=== PATIENT | female | born 1995 | race African-American/Black ===

== ENCOUNTER 2017-05-19 09:54 | Emergency (ER) | payer OTHER ==
[2017-05-19 10:00] VITALS: BMI 17.1
[2017-05-19] MEDS ORDERED: ALBUTEROL SO4 2.5/IPRATROPIUM 0.5 INH SOL 3 ML VIAL.NEB. NEB ONE ×2 (10:03→10:23)
[2017-05-19] MEDS ORDERED: predniSONE 20 MG TABLET (UD) PO ONE (10:31)
[2017-05-19] MEDS ORDERED: predniSONE 20 MG TABLET (UD) ONE (10:31)
[2017-05-19] MEDS ORDERED: ALBUTEROL SO4 0.083% IH SOL 2.5 MG/3 ML VIAL.NEB. NEB ONE ×2 (10:31)
--- NOTE | 2017-05-19 10:36 | PDOC ---
History of Present Illness - General History Source: Patient Exam Limitations: No Limitations - History of Present Illness Initial Comments: 05/19/17 11:06 The patient is a 21 year old female, with a significant past medical history of seasonal allergies and asthma who presents to the emergency department with sudden onset difficulty breathing today AM. As per mother, patient tried using albuterol pump and nebulizer every two hours with no relief. Patient has been increasingly SOB and has been wheezing more often this morning. Patient reports recent illness with URI symptoms. Patient states her Asthma triggers are weather changes and tobacco smoke. She denies chest pain, headache or dizziness. She denies fever, chills, abdominal pain, nausea, vomit, diarrhea or constipation. She denies dysuria, frequency, urgency or hematuria. <Rosenda Anaya - Last Filed: 05/19/17 11:06> - General History Source: Patient Exam Limitations: No Limitations <Edson Stevenson - Last Filed: 05/19/17 11:44> - General Chief Complaint: Asthma Stated Complaint: SOB (ASTHMA) Time Seen by Provider: 05/19/17 10:23 Past History <Rosenda Anaya - Last Filed: 05/19/17 11:06> - Past Medical History Asthma: Yes - Immunization History Immunization Up to Date: Yes - Suicide/Smoking/Psychosocial Hx Smoking Status: No Smoking History: Never smoked Have you smoked in the past 12 months: No Number of Cigarettes Smoked Daily: 0 Information on smoking cessation initiated: No Hx Alcohol Use: No Drug/Substance Use Hx: No Substance Use Type: None <Edson Stevenson - Last Filed: 05/19/17 11:44> - Past Medical History Allergies/Adverse Reactions: Allergies Allergy/AdvReac Type Severity Reaction Status Date / Time peanut Allergy Itching Verified 05/19/17 09:57 Home Medications: Ambulatory Orders Albuterol 0.083% Nebulizer Freya [Ventolin 0.083% Nebulizer Soln -] 1 neb NEB Q4H PRN #20 vial 05/19/17 Albuterol 0.083% Nebulizer Freya [Ventolin 0.083%] 1 neb NEB QID PRN 05/19/17 Budesonide/Formeterol Fumarate [SYMBICORT 160/4.5mcg -] 1 inh PO DAILY 05/19/17 Prednisone [Deltasone -] 40 mg PO DAILY #8 tablet 05/19/17 Review of Systems - Review of Systems Able to Perform ROS?: Yes Comments:: 05/19/17 11:06 GENERAL/CONSTITUTIONAL: No fever or chills. No weakness. HEAD, EYES, EARS, NOSE AND THROAT: No change in vision. No ear pain or discharge. No sore throat. CARDIOVASCULAR: No chest pain or shortness of breath. RESPIRATORY: +cough, wheezing,. No hemoptysis. GASTROINTESTINAL: No nausea, vomiting, diarrhea or constipation. GENITOURINARY: No dysuria, frequency, or change in urination. MUSCULOSKELETAL: No joint or muscle swelling or pain. No neck or back pain. SKIN: No rash NEUROLOGIC: No headache, vertigo, loss of consciousness, or change in strength/ sensation. ENDOCRINE: No increased thirst. No abnormal weight change. HEMATOLOGIC/LYMPHATIC: No anemia, easy bleeding, or history of blood clots. ALLERGIC/IMMUNOLOGIC: No hives or skin allergy. <Rosenda Anaya - Last Filed: 05/19/17 11:06> *Physical Exam - Vital Signs Last Vital Signs Temp Pulse Resp BP Pulse Ox 98.6 F 120 H 20 120/73 100 05/19/17 09:58 05/19/17 10:56 05/19/17 10:56 05/19/17 10:56 05/19/17 10:56 - Physical Exam Comments: 05/19/17 11:06 GENERAL: Awake, alert, and fully oriented, in no acute distress. +Speaking in full sentences but anxious. HEAD: No signs of trauma EYES: PERRLA, EOMI, sclera anicteric, conjunctiva clear ENT: Auricles normal inspection, hearing grossly normal, nares patent, oropharynx clear without exudates. Moist mucosa NECK: Normal ROM, supple, no lymphadenopathy, JVD, or masses LUNGS: +Moving good air. +Wheezing bilaterally. Breath sounds equal, No crackles HEART: Regular rate and rhythm, normal S1 and S2, no murmurs, rubs or gallops ABDOMEN: Soft, nontender, normoactive bowel sounds. No guarding, no rebound. No masses EXTREMITIES: Normal range of motion, no edema. No clubbing or cyanosis. No cords, erythema, or tenderness NEUROLOGICAL: Cranial nerves II through XII grossly intact. Normal speech, normal gait SKIN: Warm, Dry, normal turgor, no rashes or lesions noted. <Rosenda Anaya - Last Filed: 05/19/17 11:06> - Vital Signs Last Vital Signs Temp Pulse Resp BP Pulse Ox 98.6 F 129 H 25 H 121/80 100 05/19/17 09:58 05/19/17 09:58 05/19/17 09:58 05/19/17 09:58 05/19/17 09:58 <Edson Stevenson - Last Filed: 05/19/17 11:44> ED Treatment Course - Medications Given in the ED: ED Medications Discontinued Medications Generic Name Dose Route Start Last Admin Trade Name Freq PRN Reason Stop Dose Admin Albuterol Sulfate 3 amp 05/19/17 10:31 05/19/17 10:33 Ventolin 0.083% Nebulizer Soln - NEB 05/19/17 10:32 3 amp ONCE ONE Administration Albuterol/Ipratropium 1 amp 05/19/17 10:03 05/19/17 10:03 Duoneb - NEB 05/19/17 10:04 1 amp NOW ONE Administration Prednisone 40 mg 05/19/17 10:31 05/19/17 10:44 Deltasone - PO 05/19/17 10:32 40 mg ONCE ONE Administration <Rosenda Anaya - Last Filed: 05/19/17 11:06> - Medications Given in the ED: ED Medications Discontinued Medications Generic Name Dose Route Start Last Admin Trade Name Freq PRN Reason Stop Dose Admin Albuterol/Ipratropium 1 amp 05/19/17 10:03 05/19/17 10:03 Duoneb - NEB 05/19/17 10:04 1 amp NOW ONE Administration <Edson Stevenson - Last Filed: 05/19/17 11:44> Medical Decision Making - Medical Decision Making 05/19/17 10:33 A portion of this note was documented by scribe services under my direction. I have reviewed the details of the note, within reason, and agree with the documentation with the following case summary and management plan written by me. Patient treated in the ED. Nursing notes are reviewed and incorporated into the medical decision-making. Vital signs reviewed. Peripheral IV access obtained by the nurse, laboratory studies are drawn and sent, reviewed and interpreted by myself. Vital Signs Temp Pulse Resp BP Pulse Ox 98.6 F 129 H 25 H 121/80 100 05/19/17 09:58 05/19/17 09:58 05/19/17 09:58 05/19/17 09:58 05/19/17 09:58 21-year-old female with past medical history of asthma, with prior hospitalizations presents with asthma exacerbation. Patient reports that the changes in the weather creates her to wheeze the last several days. The mother has been giving her to 2 hour albuterol nebulizers area denies fevers or chills or cough. Patient came to the ED. The patient is anxious but breathing comfortably and speaking. We'll give more nebulizers and prednisone. Patient's tachycardic likely secondary to albuterol use. We will observe after treatments and reassess. 05/19/17 11:42 Pt reassessed. The symptoms improved and breathing with clear lungs. Return precautions given. Discharge diagnosis: asthma exacerbation I discussed the physical exam findings, ancillary test results and final diagnoses with the patient. I answered all of the patient's questions. The patient was satisfied with the care received and felt comfortable with the discharge plan and treatment plan. The patient will call their primary care physician within 24 hours to arrange follow-up and will return to the Emergency Department with any new, persistant or worsening symptoms. <Edson Stevenson - Last Filed: 05/19/17 11:44> *DC/Admit/Observation/Transfer - Attestations Scribe Attestion: 05/19/17 11:06 Documentation prepared by Rosenda Anaya, acting as medical practitioners for Edson Stevenson MD <Rosenda Anaya - Last Filed: 05/19/17 11:06> - Discharge Dispostion Admit: No <Edson Stevenson - Last Filed: 05/19/17 11:44> Diagnosis at time of Disposition: Exacerbation of asthma - Discharge Dispostion Disposition: HOME Condition at time of disposition: Improved - Prescriptions Prescriptions: Prednisone [Deltasone -] 40 mg PO DAILY #8 tablet Albuterol 0.083% Nebulizer Freya [Ventolin 0.083% Nebulizer Soln -] 1 neb NEB Q4H PRN #20 vial PRN Reason: Wheezing - Patient Instructions Printed Discharge Instructions: Asthma -- Adult Additional Instructions: Please take albuterol every 4 hours as needed for wheezing. Please take the prednisone daily for the next 4 days. Start tomorrow. Follow up with your doctor.
[2017-05-19 12:18] VITALS: BP 126/78; PULSE 102; TEMP 98.3
== END 2017-05-19 11:55 | disposition home or self-care (01) ==
LOC: JER 09:54
PROC: 3E0F7GC Introduction of Other Therapeutic Substance into Respiratory Tract, Via Natural or Artificial Opening (ICD-10-PCS; principal; 2017-05-19)
PROC: 3E0F7GC Introduction of Other Therapeutic Substance into Respiratory Tract, Via Natural or Artificial Opening (ICD-10-PCS; 2017-05-19)
DX: J45.901 Unspecified asthma with (acute) exacerbation (principal)
CPT/HCPCS: 99282-25

== ENCOUNTER 2017-11-25 16:12 | Emergency (ER) | payer OTHER ==
[2017-11-25 16:25] VITALS: BP 108/74; PULSE 78; TEMP 98.8; BMI 17.1
--- NOTE | 2017-11-25 16:27 | PDOC ---
Rapid Medical Evaluation Time Seen by Provider: 11/25/17 16:21 Medical Evaluation: Allergies Allergy/AdvReac Type Severity Reaction Status Date / Time peanut Allergy Itching Verified 11/25/17 16:21 11/25/17 16:22 Pt c/o: left knee and back pain after cleaning last ,went to [facility] -, no relief with motrin Pt on brief exam: ambulatory, candy wrap to knee Pt ordered for: hcg urine Pt to proceed to the ED 11/25/17 16:27 Discharge Disposition - Diagnosis Knee pain - Referrals - Patient Instructions - Post Discharge Activity
--- NOTE | 2017-11-25 16:46 | PDOC ---
History of Present Illness - General Chief Complaint: Pain Stated Complaint: KNEE INJURY Time Seen by Provider: 11/25/17 16:21 History Source: Patient Exam Limitations: No Limitations - History of Present Illness Initial Comments: 11/25/17 16:46 CHIEF COMPLAINT: Left knee pain with instability HISTORY OF PRESENT ILLNESS: Patient is a 22-year-old female, denies any significant medical history currently on no medication presents for evaluation of left knee pain. Patient reports on bent down hyperextended knee felt a pop in the knee then with pain to generalized knee and posterior knee. Has been wearing Chong wrap able to ambulate with steady gait. No deformity. REVIEW OF SYSTEMS: GENERAL: Afebrile, A&O x3 RESPIRATORY: No cough, wheezing, or hemoptysis. CARDIAC: No CP or SOB MUSCULOSKELETAL: Pain to left anterior and posterior knee SKIN : No erythema, no edema, no bruising, no deformity. NEUROLOGICAL: Denies any numbness or tingling. PHYSICAL EXAM: GENERAL: The patient is awake, alert, and fully oriented, in no acute distress. HEAD: Normal with no signs of trauma. RESPIRATORY: Lungs clear bilaterally no rhonchi, rales, or wheezes CARDIAC: S1-S2 audible, no murmur rub or gallop EXTREMITIES: Decreased range of motion to left knee related to pain, [no] fluid appreciated, no bulge sign. No pain to superior or inferior patella. Negative drop test. Negative posterior leg test. No joint laxity noted, no ecchymosis, no deformity, no abrasions ,no edema. +3 popliteal pulse. Negative Homans sign. No calf pain or tenderness, no erythema or edema. MUSCULOSKELETAL: No spinal point tenderness. SKIN: Warm, Dry, normal turgor, no erythema, [no] edema no bruising. 11/25/17 16:55 Past History - Past Medical History Allergies/Adverse Reactions: Allergies Allergy/AdvReac Type Severity Reaction Status Date / Time peanut Allergy Itching Verified 11/25/17 16:21 Home Medications: Ambulatory Orders Ibuprofen [Motrin -] 400 mg PO QID #28 tablet 11/25/17 Asthma: Yes COPD: No - Immunization History Immunization Up to Date: Yes - Suicide/Smoking/Psychosocial Hx Smoking Status: No Smoking History: Never smoked Have you smoked in the past 12 months: No Number of Cigarettes Smoked Daily: 0 Hx Alcohol Use: No Drug/Substance Use Hx: No Substance Use Type: None *Physical Exam - Vital Signs Last Vital Signs Temp Pulse Resp BP Pulse Ox 98.8 F 78 19 108/74 100 11/25/17 16:22 11/25/17 16:22 11/25/17 16:22 11/25/17 16:22 11/25/17 16:22 Medical Decision Making - Medical Decision Making 11/25/17 16:56 A/P: Patient with left knee pain, after hyperextension.) sent, patient sent for x-ray. 11/25/17 19:50 X-ray with no acute fracture dislocation, knee immobilizer placed on Motrin for pain and follow-up with orthopedics. *DC/Admit/Observation/Transfer Diagnosis at time of Disposition: Knee injury Qualifiers: Encounter type: initial encounter Laterality: left Qualified Code(s): S89.92XA - Unspecified injury of left lower leg, initial encounter - Discharge Dispostion Disposition: HOME Condition at time of disposition: Stable Admit: No - Prescriptions Prescriptions: Ibuprofen [Motrin -] 400 mg PO QID #28 tablet - Referrals Referrals: Abran Mccoy MD [Primary Care Provider] - - Patient Instructions Printed Discharge Instructions: DI for Knee Pain Additional Instructions: 1. Please return to the emergency department with any redness, swelling, increased pain, or any other concerns. 2. Keep splint on. 3. Please follow up in the office of Dr. Cooper within a week if pain persists. 4. No weightbearing 5. Ice and elevate when at rest. 6. Motrin for pain - Post Discharge Activity Forms/Work/School Notes: Back to Work
== END 2017-11-25 19:41 | disposition home or self-care (01) ==
LOC: JERFT 16:12
DX: S89.82XA Other specified injuries of left lower leg, initial encounter (principal); X50.1XXA Overexertion from prolonged static or awkward postures, initial encounter; Y93.E9 Activity, other interior property and clothing maintenance; Y92.89 Other specified places as the place of occurrence of the external cause; Y99.8 Other external cause status
CPT/HCPCS: 73562-TC-LT-FY; 84703; 99281-25

== ENCOUNTER 2018-05-21 05:26 | Inpatient (IN) | payer OTHER ==
[2018-05-21 06:13] LABS: BASO % 0.6 % (0-2.0); EOS % 1.5 % (0-4.5); HEMATOCRIT 35.6 % (32.4-45.2); HEMOGLOBIN 12.4 GM/dL (10.7-15.3); LYMPH % 18.9 % (8-40); MCH 30.2 pg (25.7-33.7); MCHC 34.8 g/dl (32.0-36.0); MEAN CELL VOLUME 86.8 fl (80-96); MEAN PLT VOLUME 8.5 fl (7.5-11.1); MONO % 11.2 % (3.8-10.2); NEUT % 67.8 % (42.8-82.8); PLATELET COUNT 254 K/MM3 (134-434); WHITE BLOOD COUNT 11.5 K/mm3 (4.0-10.0)
[2018-05-21 06:33] LABS: ALBUMIN 3.7 g/dl (3.4-5.0); ALK PHOS 92 U/L (45-117); ANION GAP 7 MMOL/L (8-16); BILIRUBIN,TOTAL 0.5 mg/dL (0.2-1); BLOOD UREA NITROGEN 12 mg/dL (7-18); CALCIUM 9.2 mg/dL (8.5-10.1); CHLORIDE 104 mmol/L (98-107); CO2 26 mmol/L (21-32); CREATININE 0.9 mg/dL (0.55-1.3); GLUCOSE,RANDOM 96 mg/dL (74-106); POTASSIUM 3.5 mmol/L (3.5-5.1); SGOT/AST 15 U/L (15-37); SGPT/ALT 14 U/L (13-61); SODIUM 137 mmol/L (136-145); TOT PROT 8.5 g/dl (6.4-8.2)
[2018-05-21] MEDS ORDERED: ACETAMINOPHEN 1000 MG/100 ML VIAL (NON FORMULARY) IVPB ONE (06:53)
[2018-05-21] MEDS ORDERED: ACETAMINOPHEN INJECTION 100 ML IVPB ONE (06:54)
[2018-05-21] MEDS ORDERED: ONDANSETRON 4 MG/2 ML VIAL IVPB ONE (06:54)
[2018-05-21] MEDS ORDERED: SODIUM CHLORIDE 0.9% 500 ML INFUS.BAG IV ONE (06:55)
[2018-05-21] MEDS ORDERED: ONDANSETRON 4 MG/2 ML VIAL ONE (06:55)
--- NOTE | 2018-05-21 07:32 | PDOC ---
History of Present Illness - General Chief Complaint: Pain, Acute Stated Complaint: ABD PAIN Time Seen by Provider: 05/21/18 07:12 History Source: Patient Exam Limitations: No Limitations - History of Present Illness Initial Comments: 05/21/18 07:24 CHIEF COMPLAINT: Abdominal pain HISTORY OF PRESENT ILLNESS: This is a 22-year-old female with a history of mild intermittent asthma who presents with her mother for evaluation of abdominal pain. She first developed abdominal pain, most notable in the right flank area about 2 weeks ago. She reports that the pain became worse 4-5 days ago when her menstrual period started and extends across the abdomen to the left side. She then developed fever yesterday. Last night, she developed right shoulder pain, stating that she felt she was unable to move her arm at night. She denies dysuria/hematuria. She denies vaginal discharge. She has had several episodes of diarrhea daily. She has nausea but has not vomited. She is sexually active with 1 male partner and reports using condoms insistently. Vital signs on arrival are notable for oral temperature of 101.4 and pulse of 103. PCP is Dr. Mccoy (media reporter). REVIEW OF SYSTEMS: GENERAL/CONSTITUTIONAL: Fever x 2 days. No weakness. No weight change. HEAD, EYES, EARS, NOSE AND THROAT: No change in vision. No ear pain or discharge. No sore throat. CARDIOVASCULAR: No chest pain or palpitations. RESPIRATORY: No cough, wheezing, or shortness of breath. GASTROINTESTINAL: Nausea. Diarrhea. No vomiting, diarrhea or constipation. GENITOURINARY: Right flank pain. No dysuria, frequency, or change in urination. MUSCULOSKELETAL: No joint or muscle swelling or pain. No neck or back pain. SKIN: No rash or easy bruising. NEUROLOGIC: No headache, vertigo, loss of consciousness, or loss of sensation. PSYCHIATRIC: No depression or anxiety. ENDOCRINE: No increased thirst. No abnormal weight change. HEMATOLOGIC/LYMPHATIC: No anemia, easy bleeding, or history of blood clots. ALLERGIC/IMMUNOLOGIC: No hives or skin allergy. No latex allergy. PHYSICAL EXAM: GENERAL: The patient is awake, alert, and fully oriented, in no acute distress. HEAD: Normal with no signs of trauma. ENT: Pupils equal, round and reactive to light, extraocular movements intact, sclera anicteric, conjunctiva clear. Neck supple. LUNGS: Clear to auscultation bilaterally. Normal excursion. No respiratory distress or use of accessory muscles. CV: RRR, S1/S2, no MRG. Cap refill < 2 sec. ABDOMEN: Soft, non-distended. Right CVA tenderness. Diffuse abdominal tenderness to deep palpation. EXTREMITIES: Normal range of motion, no edema. Full ROM of right shoulder. NEUROLOGICAL: Normal speech, normal gait. CN II-XII grossly intact. PSYCH: Normal mood, normal affect. SKIN: Warm, dry, normal turgor, no rashes or lesions noted. Past History - Past Medical History Allergies/Adverse Reactions: Allergies Allergy/AdvReac Type Severity Reaction Status Date / Time peanut Allergy Itching Verified 05/21/18 05:43 Home Medications: Ambulatory Orders Ibuprofen [Motrin -] 400 mg PO QID #28 tablet 11/25/17 Asthma: Yes COPD: No - Immunization History Immunization Up to Date: Yes - Suicide/Smoking/Psychosocial Hx Smoking Status: No Smoking History: Never smoked Have you smoked in the past 12 months: No Number of Cigarettes Smoked Daily: 0 Information on smoking cessation initiated: No Hx Alcohol Use: No Drug/Substance Use Hx: No Substance Use Type: None *Physical Exam - Vital Signs Last Vital Signs Temp Pulse Resp BP Pulse Ox 101.4 F H 103 H 20 119/75 99 05/21/18 05:43 05/21/18 05:43 05/21/18 05:43 05/21/18 05:43 05/21/18 05:43 ED Treatment Course - LABORATORY CBC & Chemistry Diagram: 05/21/18 06:00 05/21/18 06:00 - ADDITIONAL ORDERS Additional order review: Laboratory Results 05/21/18 06:00 Sodium 137 Potassium 3.5 Chloride 104 Carbon Dioxide 26 Anion Gap 7 L BUN 12 Creatinine 0.9 Creat Clearance w eGFR > 60 Random Glucose 96 Calcium 9.2 Total Bilirubin 0.5 AST 15 ALT 14 Alkaline Phosphatase 92 Total Protein 8.5 H Albumin 3.7 05/21/18 06:00 RBC 4.10 MCV 86.8 MCHC 34.8 RDW 14.0 MPV 8.5 Neutrophils % 67.8 Lymphocytes % 18.9 Monocytes % 11.2 H Eosinophils % 1.5 Basophils % 0.6 - Medications Given in the ED: ED Medications Discontinued Medications Generic Name Dose Route Start Last Admin Trade Name Freq PRN Reason Stop Dose Admin Acetaminophen 1,000 mg 05/21/18 06:53 05/21/18 06:59 Ofirmev Injection - IVPB 05/21/18 06:54 1,000 mg ONCE ONE Administration Ondansetron HCl 4 mg 05/21/18 06:54 05/21/18 06:59 Zofran Injection IVPB 05/21/18 06:55 4 mg ONCE ONE Administration Sodium Chloride 1,000 ml 05/21/18 06:55 05/21/18 06:59 Normal Saline - IV 05/21/18 06:56 1,000 ml ONCE ONE Administration Medical Decision Making - Medical Decision Making 05/21/18 07:32 A/P: 22-year-old female with two weeks of progressive abdominal pain, worst in right flank, now with fever. Differential includes but is not limited to: UTI/ pyelonephritis, less likely gastroenteritis (diarrhea), less likely atypical appendicitis. -Labs including CBC, CMP, UA/culture, urine , blood cultures -Acetaminophen 1000mg IVPB given for pain and fever, Zofran given for nausea 05/21/18 08:19 UA nitrite pos with 1+ leukesterase. Ceftriaxone ordered for pyelonephritis. Continues to have 8/10 pain. Toradol ordered. Abdomen re-examined: right CVA tenderness only. Bedside renal u/s: no stones or hydronephrosis. Will defer CT imagining. Patient continues to have severe pain. Will request observation for IV antibiotics and pain control. *DC/Admit/Observation/Transfer Diagnosis at time of Disposition: Pyelonephritis, SIRS (systemic inflammatory response syndrome) - Discharge Dispostion Condition at time of disposition: Guarded Decision to Admit order: Yes - Referrals - Patient Instructions - Post Discharge Activity
[2018-05-21 07:37] LABS: HCG,QUALITATIVE URINE Negative
[2018-05-21 07:52] LABS: URINE APPEARANCE CLOUDY; URINE BILIRUBIN NEGATIVE (<2.0 mg/dL); URINE COLOR YELLOW; URINE GLUCOSE (UA) NEGATIVE (NEGATIVE); URINE KETONE NEGATIVE (NEGATIVE); URINE NITRITE POSITIVE (NEGATIVE); URINE PROTEIN NEGATIVE (NEGATIVE)
[2018-05-21 08:05] LABS: URINE LEUK ESTERASE 1+ (NEGATIVE)
[2018-05-21 08:07] LABS: EPI CELLS FEW /HPF (FEW); URINE BACTERIA MANY /hpf (NONE SEEN); URINE HYALINE CAST 1 /lpf; URINE MUCUS RARE
--- NOTE | 2018-05-21 08:10 | PDOC ---
*Physical Exam - Vital Signs Last Vital Signs Temp Pulse Resp BP Pulse Ox 101.4 F H 103 H 20 119/75 99 05/21/18 05:43 05/21/18 05:43 05/21/18 05:43 05/21/18 05:43 05/21/18 05:43 - Physical Exam Comments: 05/21/18 09:13 NAD, well appearing, MMM, nl conjunctiva, anicteric; neck supple. lungs clear, + tachy, abdomen soft with +Left CVAT. WARNER x4, no focal neuro deficits. No peripheral edema. normal color for ethnicity, WWP. very warm to touch. ED Treatment Course - LABORATORY CBC & Chemistry Diagram: 05/21/18 06:00 05/21/18 06:00 - ADDITIONAL ORDERS Additional order review: Laboratory Results 05/21/18 05/21/18 07:10 06:00 Sodium 137 Potassium 3.5 Chloride 104 Carbon Dioxide 26 Anion Gap 7 L BUN 12 Creatinine 0.9 Creat Clearance w eGFR > 60 Random Glucose 96 Calcium 9.2 Total Bilirubin 0.5 AST 15 ALT 14 Alkaline Phosphatase 92 Total Protein 8.5 H Albumin 3.7 Urine Color Yellow Urine Appearance Cloudy Urine pH 5.0 Ur Specific [place] 1.017 Urine Protein Negative Urine Glucose (UA) Negative Urine Ketones Negative Urine Blood 1+ H Urine Nitrite Positive Urine Bilirubin Negative Urine Urobilinogen 2.0 H Ur Leukocyte Esterase 1+ H Urine HCG, Qual Negative 05/21/18 06:00 RBC 4.10 MCV 86.8 MCHC 34.8 RDW 14.0 MPV 8.5 Neutrophils % 67.8 Lymphocytes % 18.9 Monocytes % 11.2 H Eosinophils % 1.5 Basophils % 0.6 - Medications Given in the ED: ED Medications Discontinued Medications Generic Name Dose Route Start Last Admin Trade Name Freq PRN Reason Stop Dose Admin Acetaminophen 1,000 mg 05/21/18 06:53 05/21/18 06:59 Ofirmev Injection - IVPB 05/21/18 06:54 1,000 mg ONCE ONE Administration Ondansetron HCl 4 mg 05/21/18 06:54 05/21/18 06:59 Zofran Injection IVPB 05/21/18 06:55 4 mg ONCE ONE Administration Sodium Chloride 1,000 ml 05/21/18 06:55 05/21/18 06:59 Normal Saline - IV 05/21/18 06:56 1,000 ml ONCE ONE Administration Medical Decision Making - Medical Decision Making 05/21/18 08:10 The patient was seen and evaluated in conjunction with midlevel provider under my direct supervision, ancillary studies were reviewed. I agree with the plan as outlined by APPLICATIONS SYSTEMS ENGINEER Melody 22-year-old female with a history of mild intermittent asthma who presents with her mother for evaluation of abdominal pain x 2 weeks, worse in right flank. LMP 05/17/18. +fevers. +shoulder pain. no n/v/d, dysuria or hematuria. vitals with fever and tachycardia. interventions in the ED include analgesia, and IVF lactic, blood cx and urine cultures for sepsis workup. labs with mild leukocytosis of 11K, with UA c/w UTI and copious leuk esterase/ WBCs, clinically correlating with acute pyelonephritis. Bedside renal sono without hydronephrosis, distended bladder without pelvic FF. gallbladder normal w/o stones. +increased flow in renal pelvis on right correlating with pyelo defer CT imaging at this time, as exam c/w acute pyelo, no lower quad or RLQ pain abdomen nonperitoneal IV ceftriaxone, analgesia. admit for fluids and IV abx for acute pyelo d/w patient's mother and her regarding impression and plan, agree with plan 05/21/18 09:11 *DC/Admit/Observation/Transfer Diagnosis at time of Disposition: Pyelonephritis, SIRS (systemic inflammatory response syndrome) - Discharge Dispostion Condition at time of disposition: Guarded Decision to Admit order: Yes Decision to Admit order Date/Time: 05/21/18 09:14 - Referrals Referrals: Abran Mccoy MD [Primary Care Provider] - - Patient Instructions - Post Discharge Activity
[2018-05-21] MEDS ORDERED: CEFTRIAXONE 1,000 MG in DEXTROSE 5%-WATER - 50 ML IVPB ONE (08:24)
[2018-05-21] MEDS ORDERED: KETOROLAC TROMETHAMINE 30 MG/1 ML VIAL IVPUSH ONE (08:50)
[2018-05-21] MEDS ORDERED: CEFTRIAXONE 1 GM/50 ML BAG ONE (08:55)
[2018-05-21] MEDS ORDERED: KETOROLAC TROMETHAMINE 30 MG/1 ML VIAL ONE ×2 (08:55→17:16)
[2018-05-21] MEDS ORDERED: ACETAMINOPHEN 325 MG TABLET (FP) PO PRN ×3 (11:09→17:20)
--- NOTE | 2018-05-21 11:23 | HP ---
CHIEF COMPLAINT: Right Side pain PCP: Nadine (knitting tester) HISTORY OF PRESENT ILLNESS: 22F history of mild intermittent asthma, has not used inhaler since the beginning of the summer, presents to the ER with a 2 week history of right side pain. She states she started to have the pain and thought it was her cramping from her menstrual cycle. LMP was 05/13/2018. When her menstrual cycle resolved and her pain didn't go away she was concerned. She states she may have had a fever about 2-3 days ago as she felt hot but did not take her temperature. She endorses some mild nausea, diarrhea for the past 3 days, and decreased PO intake yesterday. She denies urinary symptoms. She denies vomiting chills chest pain shortness of breath. UA positive in the ED and she received ceftriaxone. Bedside US done by ED attending and residents shows no hydronephrosis and increase renal pelvis flow consistent with pyelonephritis. Patient septic upon presentation as she was tachycardic, febrile with a confirmed source. ER course was notable for: (1)IVF (2)Bedside US (3)Labs UA ABx Recent Travel:Denies PAST MEDICAL HISTORY:Mild intermittent asthma PAST SURGICAL HISTORY:Denies Social History: Smoking:Denies Alcohol:Denies Drugs: Denies Family History: Allergies peanut Allergy (Verified 05/21/18 05:43) Itching HOME MEDICATIONS: Home Medications Medication Instructions Recorded Ibuprofen [Motrin -] 400 mg PO QID #28 tablet 11/25/17 REVIEW OF SYSTEMS CONSTITUTIONAL: Absent: diaphoresis, generalized weakness, malaise, loss of appetite, weight change Present:fever, chills, loss of appetite HEENT: Absent: rhinorrhea, nasal congestion, throat pain, throat swelling, difficulty swallowing, mouth swelling, ear pain, eye pain, visual changes CARDIOVASCULAR: Absent: chest pain, syncope, palpitations, irregular heart rate, lightheadedness , peripheral edema RESPIRATORY: Absent: cough, shortness of breath, dyspnea with exertion, orthopnea, wheezing, stridor, hemoptysis GASTROINTESTINAL: Absent: abdominal pain, abdominal distension, vomiting, constipation, melena, hematochezia Present: diarrhea, nausea GENITOURINARY: Absent: dysuria, frequency, urgency, hesitancy, hematuria, flank pain, genital pain MUSCULOSKELETAL: Absent: myalgia, arthralgia, joint swelling, back pain, neck pain SKIN: Absent: rash, itching, pallor HEMATOLOGIC/IMMUNOLOGIC: Absent: easy bleeding, easy bruising, lymphadenopathy, frequent infections ENDOCRINE: Absent: unexplained weight gain, unexplained weight loss, heat intolerance, cold intolerance NEUROLOGIC: Absent: headache, focal weakness or paresthesias, dizziness, unsteady gait, seizure, mental status changes, bladder or bowel incontinence PSYCHIATRIC: Absent: anxiety, depression, suicidal or homicidal ideation, hallucinations. PHYSICAL EXAMINATION Vital Signs - 24 hr 05/21/18 05/21/18 05:43 09:48 Temperature 101.4 F H 98.0 F Pulse Rate 103 H Pulse Rate [ 70 Right] Respiratory 20 17 Rate Blood Pressure 119/75 Blood Pressure 100/59 [Right Arm] O2 Sat by Pulse 99 100 Oximetry (%) GENERAL: Awake, alert, and fully oriented, in no acute distress. HEAD: Normal with no signs of trauma. EYES: Pupils equal, round and reactive to light, extraocular movements intact, sclera anicteric, conjunctiva clear. No lid lag. EARS, NOSE, THROAT: Dry mucous membranes. NECK: Normal range of motion, supple without lymphadenopathy, JVD, or masses. LUNGS: Breath sounds equal, clear to auscultation bilaterally. No wheezes, and no crackles. No accessory muscle use. HEART: Regular rate and rhythm, normal S1 and S2 without murmur, rub or gallop. ABDOMEN: Soft, nontender, not distended, normoactive bowel sounds, no guarding, no rebound, no masses. MUSCULOSKELETAL: right sided CVA tenderness. UPPER EXTREMITIES: warm, well-perfused. No peripheral edema. LOWER EXTREMITIES: warm, well-perfused. No peripheral edema. NEUROLOGICAL: Cranial nerves II-XII intact. Normal speech. PSYCHIATRIC: Cooperative. Good eye contact. Appropriate mood and affect. SKIN: Dry, warm Laboratory Results - last 24 hr 05/21/18 05/21/18 05/21/18 06:00 06:00 07:10 WBC 11.5 H RBC 4.10 Hgb 12.4 Hct 35.6 D MCV 86.8 MCH 30.2 MCHC 34.8 RDW 14.0 Plt Count 254 MPV 8.5 Absolute Neuts (auto) 7.8 Neutrophils % 67.8 Lymphocytes % 18.9 Monocytes % 11.2 H Eosinophils % 1.5 Basophils % 0.6 Nucleated RBC % 0 Sodium 137 Potassium 3.5 Chloride 104 Carbon Dioxide 26 Anion Gap 7 L BUN 12 Creatinine 0.9 Creat Clearance w eGFR > 60 Random Glucose 96 Lactic Acid Calcium 9.2 Total Bilirubin 0.5 AST 15 ALT 14 Alkaline Phosphatase 92 Total Protein 8.5 H Albumin 3.7 Urine Color Yellow Urine Appearance Cloudy Urine pH 5.0 Ur Specific [place] 1.017 Urine Protein Negative Urine Glucose (UA) Negative Urine Ketones Negative Urine Blood 1+ H Urine Nitrite Positive Urine Bilirubin Negative Urine Urobilinogen 2.0 H Ur Leukocyte Esterase 1+ H Urine WBC (Auto) 73 Urine RBC (Auto) 2 Ur Epithelial Cells Few Urine Bacteria Many Hyaline Casts 1 Urine Mucus Rare Urine HCG, Qual Negative 05/21/18 09:00 WBC RBC Hgb Hct MCV MCH MCHC RDW Plt Count MPV Absolute Neuts (auto) Neutrophils % Lymphocytes % Monocytes % Eosinophils % Basophils % Nucleated RBC % Sodium Potassium Chloride Carbon Dioxide Anion Gap BUN Creatinine Creat Clearance w eGFR Random Glucose Lactic Acid 0.9 Calcium Total Bilirubin AST ALT Alkaline Phosphatase Total Protein Albumin Urine Color Urine Appearance Urine pH Ur Specific [place] Urine Protein Urine Glucose (UA) Urine Ketones Urine Blood Urine Nitrite Urine Bilirubin Urine Urobilinogen Ur Leukocyte Esterase Urine WBC (Auto) Urine RBC (Auto) Ur Epithelial Cells Urine Bacteria Hyaline Casts Urine Mucus Urine HCG, Qual ASSESSMENT/PLAN: 22F with history of mild intermittent asthma presents to the ER with right sided abdominal pain found to have a positive UA consistent with pyelonephritis. Sepsis secondary to pyelonephritis: Patient had fever to 101.4 and tachycardic to 103 with a source in the urine admit to med/surg pain control Ceftriaxone f/u BCx Send UCx-Abx already given antipyretics Mild leukocytosis: trend CBC mild intermittent asthma: no active at this time bronchodilators PRN if needed FEN: NS @ 100ml/hr no electrolyte issues regular diet PPx: SCDs/Lovenox early ambulation Case discussed with Dr. Saldana Visit type - Emergency Visit Emergency Visit: Yes ED Registration Date: 05/21/18 Care time: The patient presented to the Emergency Department on the above date and was hospitalized for further evaluation of their emergent condition. - New Patient This patient is new to me today: Yes Date on this admission: 05/21/18 - Critical Care Critical Care patient: No Hospitalist Screening - Colonoscopy Questionnaire Colonoscopy Questionnaire: Colonoscopy Questionnaire - Patient: 50 - 75 years old and never had a screening colonoscopy: No History of colon or rectal polyps, or CA: No History of IBD, Crohn's disease or UC: No History of abdominal radiation therapy as a child: No - Relative: 1 with colon or rectal CA, or polyps at age 60 or younger: No Colon or rectal CA diagnosed at age 45 or younger: No Multiple relatives with colon or rectal CA: No - Outcome: Screening Result: Negative Screen
--- NOTE | 2018-05-21 12:02 | PN ---
Teaching Attending Note Name of Resident: Dedrick Preciado ATTENDING PHYSICIAN STATEMENT I saw and evaluated the patient. I reviewed the resident's note and discussed the case with the resident. I agree with the resident's findings and plan as documented. SUBJECTIVE: This is a 22 year old woman with a history of asthma who comes to the ED complaining of pain in her right side on and off for 2 weeks. She has had nausea, diarrhea, and decreased appetite. She thinks she has had fevers. She denies dysuria, hematuria, urinary frequency. OBJECTIVE: Vital Signs Period Temp Pulse Resp BP Sys/[place] Pulse Ox Last 24 Hr 98.0 F-101.4 F 70-103 17-20 100-119/59-75 99-100 HEART: S1S2, RRR LUNGS: Clear ABDOMEN: Soft, non-distended, non-tender, normal BS BACK: Right CVA tenderness EXTREMITIES: No edema Laboratory Results - last 24 hr 05/21/18 05/21/18 05/21/18 06:00 06:00 07:10 WBC 11.5 H RBC 4.10 Hgb 12.4 Hct 35.6 D MCV 86.8 MCH 30.2 MCHC 34.8 RDW 14.0 Plt Count 254 MPV 8.5 Absolute Neuts (auto) 7.8 Neutrophils % 67.8 Lymphocytes % 18.9 Monocytes % 11.2 H Eosinophils % 1.5 Basophils % 0.6 Nucleated RBC % 0 Sodium 137 Potassium 3.5 Chloride 104 Carbon Dioxide 26 Anion Gap 7 L BUN 12 Creatinine 0.9 Creat Clearance w eGFR > 60 Random Glucose 96 Lactic Acid Calcium 9.2 Total Bilirubin 0.5 AST 15 ALT 14 Alkaline Phosphatase 92 Total Protein 8.5 H Albumin 3.7 Urine Color Yellow Urine Appearance Cloudy Urine pH 5.0 Ur Specific [place] 1.017 Urine Protein Negative Urine Glucose (UA) Negative Urine Ketones Negative Urine Blood 1+ H Urine Nitrite Positive Urine Bilirubin Negative Urine Urobilinogen 2.0 H Ur Leukocyte Esterase 1+ H Urine WBC (Auto) 73 Urine RBC (Auto) 2 Ur Epithelial Cells Few Urine Bacteria Many Hyaline Casts 1 Urine Mucus Rare Urine HCG, Qual Negative 05/21/18 09:00 WBC RBC Hgb Hct MCV MCH MCHC RDW Plt Count MPV Absolute Neuts (auto) Neutrophils % Lymphocytes % Monocytes % Eosinophils % Basophils % Nucleated RBC % Sodium Potassium Chloride Carbon Dioxide Anion Gap BUN Creatinine Creat Clearance w eGFR Random Glucose Lactic Acid 0.9 Calcium Total Bilirubin AST ALT Alkaline Phosphatase Total Protein Albumin Urine Color Urine Appearance Urine pH Ur Specific [place] Urine Protein Urine Glucose (UA) Urine Ketones Urine Blood Urine Nitrite Urine Bilirubin Urine Urobilinogen Ur Leukocyte Esterase Urine WBC (Auto) Urine RBC (Auto) Ur Epithelial Cells Urine Bacteria Hyaline Casts Urine Mucus Urine HCG, Qual Home Medications Medication Instructions Recorded Ibuprofen [Motrin -] 400 mg PO QID #28 tablet 11/25/17 ASSESSMENT AND PLAN: This is a 22 year old woman with a history of asthma who presented to the ED with pain in her right side. 1. Sepsis secondary to acute pyelonephritis - Temp 101.4, HR 103 - US done by ED shows no hydronephrosis, distended urinary bladder without pelvic free fluid, normal gallbladder with no stones, increased flow in right renal pelvis consistent with pyelonephritis - UA shows 1+ LE, 73 WBC, many bacteria, positive nitrite - Rocephin given in ED - will continue - IV fluid - Follow up urine, blood cultures 2. Asthma - Stable
[2018-05-21] MEDS: SODIUM CHLORIDE 1,000 ML IV SCH (15:30)
[2018-05-21] MEDS: KETOROLAC TROMETHAMINE 30 MG/1 ML VIAL IVPUSH PRN (17:30)
[2018-05-21 18:15] VITALS: BMI 17.9
[2018-05-22] MEDS: SODIUM CHLORIDE 1,000 ML IV SCH (05:20)
[2018-05-22 08:06] LABS: BASO % 0.5 % (0-2.0); HEMATOCRIT 32.3 % (32.4-45.2); HEMOGLOBIN 10.8 GM/dL (10.7-15.3); LYMPH % 19.8 % (8-40); MCH 29.7 pg (25.7-33.7); MCHC 33.4 g/dl (32.0-36.0); MEAN CELL VOLUME 88.8 fl (80-96); MEAN PLT VOLUME 8.9 fl (7.5-11.1); MONO % 12.1 % (3.8-10.2); NEUT % 66.6 % (42.8-82.8); PLATELET COUNT 262 K/MM3 (134-434); RBC 3.64 M/mm3 (3.60-5.2); RDW 13.6 % (11.6-15.6); WHITE BLOOD COUNT 12.8 K/mm3 (4.0-10.0)
[2018-05-22 08:26] LABS: ANION GAP 7 MMOL/L (8-16); BLOOD UREA NITROGEN 5 mg/dL (7-18); CALCIUM 8.5 mg/dL (8.5-10.1); CHLORIDE 108 mmol/L (98-107); CO2 25 mmol/L (21-32); CREATININE 0.7 mg/dL (0.55-1.3); GLUCOSE,RANDOM 96 mg/dL (74-106); MAGNESIUM 1.8 mg/dL (1.8-2.4); PHOSPHOROUS 3.7 mg/dL (2.5-4.9); POTASSIUM 3.7 mmol/L (3.5-5.1); SODIUM 140 mmol/L (136-145)
[2018-05-22] MEDS ORDERED: cefTRIAXone SODIUM 1 GM VIAL ONE (09:02)
[2018-05-22] MEDS ORDERED: DEXTROSE 5%-WATER - 50 ML IVPB ONE (09:02)
[2018-05-22] MEDS: CEFTRIAXONE 1 GM in DEXTROSE 5%-WATER - 50 ML IVPB SCH (09:09)
[2018-05-22] MEDS: ENOXAPARIN NA (PORCINE) 40 MG/0.4 ML DISP.SYRIN SQ SCH (09:13)
[2018-05-22] MEDS ORDERED: ENOXAPARIN NA (PORCINE) 30 MG/0.3 ML DISP.SYRIN SQ SCH (10:00)
--- NOTE | 2018-05-22 12:47 | PN ---
Physical Exam: SUBJECTIVE: Patient seen and examined at bedside this morning feels better today Per Daytime nurse patient had a fever 103.4 last night that was not documented. Patient corroborates this fever. Still having fevers WBC count increased to 12.8 from 11.5 yesterday Less back pain today. Pain only with movement. Tolerating diet and her appetite is much improved OBJECTIVE: Vital Signs Period Temp Pulse Resp BP Sys/[place] Pulse Ox Last 24 Hr 98.2 F-100.7 F 72-100 17-20 100-117/47-77 98-98 GENERAL: Awake, alert, and fully oriented, in no acute distress. HEAD: Normal with no signs of trauma. EYES: Pupils equal, round and reactive to light, extraocular movements intact, sclera anicteric, conjunctiva clear. No lid lag. EARS, NOSE, THROAT: Dry mucous membranes. NECK: Normal range of motion, supple without lymphadenopathy, JVD, or masses. LUNGS: Breath sounds equal, clear to auscultation bilaterally. No wheezes, and no crackles. No accessory muscle use. HEART: Regular rate and rhythm, normal S1 and S2 without murmur, rub or gallop. ABDOMEN: Soft, nontender, not distended, normoactive bowel sounds, no guarding, no rebound, no masses. MUSCULOSKELETAL: very mild right sided CVA tenderness-significantly improved UPPER EXTREMITIES: warm, well-perfused. No peripheral edema. LOWER EXTREMITIES: warm, well-perfused. No peripheral edema. NEUROLOGICAL: Cranial nerves II-XII intact. Normal speech. PSYCHIATRIC: Cooperative. Good eye contact. Appropriate mood and affect. SKIN: Dry, warm Laboratory Results - last 24 hr 05/22/18 05/22/18 06:40 06:40 WBC 12.8 H RBC 3.64 Hgb 10.8 Hct 32.3 L MCV 88.8 MCH 29.7 MCHC 33.4 RDW 13.6 Plt Count 262 MPV 8.9 Absolute Neuts (auto) 8.5 H Neutrophils % 66.6 Lymphocytes % 19.8 Monocytes % 12.1 H Eosinophils % 1.0 Basophils % 0.5 Nucleated RBC % 0 Sodium 140 Potassium 3.7 Chloride 108 H Carbon Dioxide 25 Anion Gap 7 L BUN 5 L Creatinine 0.7 Creat Clearance w eGFR > 60 Random Glucose 96 Calcium 8.5 Phosphorus 3.7 Magnesium 1.8 Active Medications Generic Name Dose Route Start Last Admin Trade Name Freq PRN Reason Stop Dose Admin Acetaminophen 650 mg 05/21/18 17:20 05/21/18 23:59 Tylenol - PO 650 mg Q4H PRN Administration FEVER Acetaminophen 650 mg 05/21/18 17:20 Tylenol - PO Q4H PRN PAIN LEVEL 1-5 Enoxaparin Sodium 40 mg 05/22/18 10:00 05/22/18 09:13 Lovenox - SQ Not Given DAILY JESSICA Ceftriaxone Sodium 1 gm/ 50 mls @ 100 mls/hr 05/22/18 10:00 05/22/18 09:09 Dextrose IVPB 100 mls/hr DAILY JESSICA Administration Sodium Chloride 1,000 mls @ 100 mls/hr 05/21/18 11:15 05/22/18 05:20 Normal Saline - IV 100 mls/hr ASDIR JESSICA Administration Ketorolac Tromethamine 30 mg 05/21/18 17:18 05/21/18 17:30 Toradol Injection - IVPUSH 05/26/18 17:17 30 mg Q6H PRN Administration PAIN LEVEL 6-10 ASSESSMENT/PLAN: 22F with history of mild intermittent asthma presents to the ER with right sided side/abdominal pain found to have a positive UA consistent with pyelonephritis. Sepsis secondary to pyelonephritis: Patient has a fever and WBC count >12 with a source in the urine Patient is still spiking fevers and her leukocytosis worsened although clinically she is doing better pain control continue Ceftriaxone 1gm daily f/u BCx-pending NGTD UCx No growth-Abx already given prior to culture antipyretics leukocytosis: trend CBC mild intermittent asthma: no active at this time bronchodilators PRN if needed FEN: stop IVF no electrolyte issues regular diet PPx: SCDs/Lovenox early ambulation Case discussed with Dr. Carpenter Visit type - Emergency Visit Emergency Visit: Yes ED Registration Date: 05/21/18 Care time: The patient presented to the Emergency Department on the above date and was hospitalized for further evaluation of their emergent condition. - New Patient This patient is new to me today: No - Critical Care Critical Care patient: No
[2018-05-22] MEDS ORDERED: ACETAMINOPHEN 500 MG TABLET (FP) PO PRN (13:44)
--- NOTE | 2018-05-22 19:07 | PN ---
Teaching Attending Note Name of Resident: Dedrick Preciado ATTENDING PHYSICIAN STATEMENT I saw and evaluated the patient. I reviewed the resident's note and discussed the case with the resident. I agree with the resident's findings and plan as documented. SUBJECTIVE: felt better this am at time of evaluation . no pain or SOB. fever OBJECTIVE: NAD Cv: RRR Lungs: CTAB Ext : no edema Abd:sfot, TP In RUQ, RLQ and CVA tenderness ASSESSMENT AND PLAN: 22 y/o lady with h/o asthma who presented with abd pain and was found ot have acute sepsis form pyeonephritis 1-Sepsis 2/2 pyelonephritis : cont to have fever but still within 48 hr of abx - cont ctx - urine cx neg but was taken after abx were given - follow blood cx . - if cont to have fever , then US of kidneys to r/o abscess 2- asthma , not active
[2018-05-23] MEDS: KETOROLAC TROMETHAMINE 30 MG/1 ML VIAL IVPUSH PRN (00:19)
[2018-05-23 07:05] LABS: BASO % 0.5 % (0-2.0); EOS % 1.6 % (0-4.5); HEMATOCRIT 31.2 % (32.4-45.2); HEMOGLOBIN 10.6 GM/dL (10.7-15.3); LYMPH % 23.4 % (8-40); MCH 29.6 pg (25.7-33.7); MCHC 33.9 g/dl (32.0-36.0); MEAN CELL VOLUME 87.4 fl (80-96); MEAN PLT VOLUME 8.9 fl (7.5-11.1); MONO % 11.2 % (3.8-10.2); NEUT % 63.3 % (42.8-82.8); PLATELET COUNT 275 K/MM3 (134-434); RBC 3.56 M/mm3 (3.60-5.2); RDW 13.8 % (11.6-15.6)
[2018-05-23] MEDS ORDERED: DEXTROSE 5%-WATER - 50 ML IVPB ONE (09:25)
[2018-05-23] MEDS ORDERED: cefTRIAXone SODIUM 1 GM VIAL ONE (09:25)
[2018-05-23] MEDS: CEFTRIAXONE 1 GM in DEXTROSE 5%-WATER - 50 ML IVPB SCH (09:49)
[2018-05-23] MEDS: ENOXAPARIN NA (PORCINE) 40 MG/0.4 ML DISP.SYRIN SQ SCH (09:49)
--- NOTE | 2018-05-23 12:14 | PN ---
Physical Exam: SUBJECTIVE: Patient seen and examined. Says she feels much better, no fevers, no dysuria, no abdominal pain. Tolerating food. OBJECTIVE: Vital Signs Period Temp Pulse Resp BP Sys/[place] Pulse Ox Last 24 Hr 98.1 F-103 F 67-90 17-20 89-111/41-70 100 GENERAL: The patient is awake, alert, and fully oriented, in no acute distress. ENT: moist mucous membranes. NECK: Trachea midline, full range of motion, supple. LUNGS: Breath sounds equal, clear to auscultation bilaterally, no wheezes, no crackles HEART: Regular rate and rhythm, S1, S2 without murmur ABDOMEN: Soft, nontender suprapubic region, nondistended, normoactive bowel sounds EXTREMITIES: 2+ pulses, warm, well-perfused, no edema. NEUROLOGICAL: Cranial nerves II through XII grossly intact. Normal speech, gait not observed. PSYCH: Normal mood, normal affect. CBC, BMP 05/23/18 06:00 05/22/18 06:40 Laboratory Tests 05/21/18 05/22/18 05/23/18 06:00 06:40 06:00 WBC 11.5 H 12.8 H 13.0 H Hgb 12.4 10.8 10.6 L Hct 35.6 D 32.3 L 31.2 L Laboratory Results - last 24 hr 05/23/18 06:00 WBC 13.0 H RBC 3.56 L Hgb 10.6 L Hct 31.2 L MCV 87.4 MCH 29.6 MCHC 33.9 RDW 13.8 Plt Count 275 MPV 8.9 Absolute Neuts (auto) 8.2 H Neutrophils % 63.3 Lymphocytes % 23.4 Monocytes % 11.2 H Eosinophils % 1.6 Basophils % 0.5 Nucleated RBC % 0 Urine Test Results Urine Color Yellow 05/21/18 07:10 Urine Appearance Cloudy 05/21/18 07:10 Urine pH 5.0 (5.0-8.0) 05/21/18 07:10 Ur Specific [place] 1.017 (1.001-1.035) 05/21/18 07:10 Urine Protein Negative (NEGATIVE) 05/21/18 07:10 Urine Glucose (UA) Negative (NEGATIVE) 05/21/18 07:10 Urine Ketones Negative (NEGATIVE) 05/21/18 07:10 Urine Blood 1+ (NEGATIVE) H 05/21/18 07:10 Urine Nitrite Positive (NEGATIVE) 05/21/18 07:10 Urine Bilirubin Negative (<2.0 mg/dL) 05/21/18 07:10 Ur Leukocyte Esterase 1+ (NEGATIVE) H 05/21/18 07:10 Ur Epithelial Cells Few /HPF (FEW) 05/21/18 07:10 Urine Bacteria Many /hpf (NONE SEEN) 05/21/18 07:10 Urine Mucus Rare 05/21/18 07:10 Microbiology 05/21/18 08:57 Blood - Peripheral Venous Blood Culture - Preliminary NO GROWTH OBTAINED AFTER 48 HOURS, INCUBATION TO CONTINUE FOR 3 DAYS. 05/21/18 08:57 Blood - Peripheral Venous Blood Culture - Preliminary NO GROWTH OBTAINED AFTER 48 HOURS, INCUBATION TO CONTINUE FOR 3 DAYS. 05/21/18 13:45 Urine - Urine Clean Catch Urine Culture - Final NO GROWTH OBTAINED Current Medications Acetaminophen (Tylenol -) 1,000 mg PO Q6H PRN PRN Reason: PAIN OR FEVER Last Admin: 05/22/18 13:59 Dose: 1,000 mg Enoxaparin Sodium (Lovenox -) 40 mg SQ DAILY [facility] Last Admin: 05/23/18 09:49 Dose: Not Given Ceftriaxone Sodium 1 gm/ (Dextrose) 50 mls @ 100 mls/hr IVPB DAILY [facility] Last Admin: 05/23/18 09:49 Dose: 100 mls/hr Ketorolac Tromethamine (Toradol Injection -) 30 mg IVPUSH Q6H PRN PRN Reason: PAIN LEVEL 6-10 Stop: 05/26/18 17:17 Last Admin: 05/23/18 00:19 Dose: 30 mg Pelvic US Jan 10 2017: Real time examination of the pelvis demonstrates the following: The uterus is normal in size measuring 5.2 x 4.0 x 3.2 cm. No uterine masses are seen. A normal appearing endometrium of 5 mm thickness was demonstrated. The ovaries are normal in size and texture with arterial flow documented to both ovaries. There is no evidence of adnexal masses or free pelvic fluid collections. IMPRESSION: Normal pelvic sonogram with no evidence of ovarian cysts, torsion or acute pathology. 12 Jan 2017 Pelvic US: The uterus measures 5.6 x 3 cm. Endometrial stripe measures 2 mm in thickness and it is within normal limits. The right ovary measured 3.8 x 2.1 cm and the left ovary measured 3.1 x 2 cm, as well. Both ovaries appear unremarkable. Normal vascular flow was documented in both ovaries. There is no free fluid in the cul-de-sac. IMPRESSION: Unremarkable examination Bladder/Renal US 05/23: . The kidneys are normal in size with the right kidney measuring 8.8 x 3.2 x 3.3 cm and the left kidney measuring 8.1 x 3.6 x 3.1 cm. They are normal in position and texture with no evidence of hydronephrosis or contour deforming renal masses. Evaluation of the urinary bladder demonstrates no intrinsic bladder abnormalities. A pre-void bladder volume of 374 cc was calculated. A post voiding image demonstrates complete emptying of the bladder with no significant postvoid residual. The uterus is normal in size measuring 5.4 x 4.5 x 3.6 cm. No uterine masses are seen. A normal appearing endometrium of 4 mm thickness is identified. The ovaries are normal in size and texture with no evidence of adnexal masses. There is a trace amount of free fluid within the cul-de-sac. Morphologically normal kidneys and urinary bladder with no evidence of renal abscess, hydronephrosis or acute pathology. 2. No significant postvoid residual. 3. Trace free pelvic fluid. Please see above discussion. ASSESSMENT/PLAN: 22F with PMHx of mild intermittent asthma presents to the ER with right sided abdominal pain found to have a positive UA consistent with pyelonephritis. Sepsis secondary to pyelonephritis: Pt met SIRS criteria with Urine source Patient is still spiking fevers and her leukocytosis worsened although clinically she is doing better pain control continue Ceftriaxone 1gm daily 05/20 BCx-No growth UCx No growth-Abx already given prior to culture Pain mx- toradol/tylenol leukocytosis: Pt clinically appaers better, yet still trending up 11.5>>12.8>>13.0 Kidney bladder US-ve trend CBC, if it continues to rise, antibiotics may need to be changed mild intermittent asthma: no active at this time bronchodilators PRN if needed FEN: stop IVF no electrolyte issues regular diet PPx: SCDs/Lovenox early ambulation Visit type - Emergency Visit Emergency Visit: Yes ED Registration Date: 05/21/18 Care time: The patient presented to the Emergency Department on the above date and was hospitalized for further evaluation of their emergent condition. - New Patient This patient is new to me today: Yes Date on this admission: 05/23/18 - Critical Care Critical Care patient: No - Discharge Referral Referred to [facility] Med P.C.: No
--- NOTE | 2018-05-23 13:48 | PN ---
Teaching Attending Note Name of Resident: Che Fagan ATTENDING PHYSICIAN STATEMENT I saw and evaluated the patient. I reviewed the resident's note and discussed the case with the resident. I agree with the resident's findings and plan as documented. SUBJECTIVE: no fever or chills last night . No abd pain with no movement. no dysuria or hematuria OBJECTIVE: NAD Cv: RRR Lungs: CTAB Ext : no edema Abd:soft ,TTP In RUQ, RLQ and no CVA tenderness today ASSESSMENT AND PLAN: 22 y/o lady with h/o asthma who presented with abd pain and was found ot have acute sepsis form pyeonephritis 1-Sepsis 2/2 pyelonephritis: n ofever since 1 pm yesterday. but WBc increased US obtined today and no abscess was seen . cont CTX follow blood cx 2- asthma , not active HLOC due to worsening leukocytosis
[2018-05-24 07:19] LABS: BASO % 0.6 % (0-2.0); HEMATOCRIT 31.9 % (32.4-45.2); LYMPH % 23.3 % (8-40); MCH 30.1 pg (25.7-33.7); MCHC 34.5 g/dl (32.0-36.0); MEAN CELL VOLUME 87.2 fl (80-96); MEAN PLT VOLUME 8.5 fl (7.5-11.1); MONO % 9.6 % (3.8-10.2); NEUT % 64.5 % (42.8-82.8); PLATELET COUNT 312 K/MM3 (134-434); RBC 3.65 M/mm3 (3.60-5.2); RDW 14.1 % (11.6-15.6); WHITE BLOOD COUNT 10.2 K/mm3 (4.0-10.0)
[2018-05-24] MEDS ORDERED: DEXTROSE 5%-WATER - 50 ML IVPB ONE (10:28)
[2018-05-24] MEDS ORDERED: cefTRIAXone SODIUM 1 GM VIAL ONE (10:28)
[2018-05-24] MEDS: CEFTRIAXONE 1 GM in DEXTROSE 5%-WATER - 50 ML IVPB SCH (10:31)
[2018-05-24] MEDS: ENOXAPARIN NA (PORCINE) 40 MG/0.4 ML DISP.SYRIN SQ SCH (10:38)
--- NOTE | 2018-05-24 13:20 | DS ---
Physical Examination Vital Signs: Vital Signs Temperature 97.7 F 05/24/18 10:27 Pulse Rate 60 05/24/18 10:27 Respiratory Rate 20 05/24/18 10:27 Blood Pressure 103/59 L 05/24/18 10:27 O2 Sat by Pulse Oximetry (%) 100 05/23/18 21:00 Findings/Remarks: No abd pain, no flank pain,no dysuria or hematuria OBJECTIVE: NAD Cv: RRR Lungs: CTAB Ext : no edema Abd:soft ,NT, ND , NL BS . No CVA tenderness Labs: CBC, BMP 05/24/18 05:45 05/22/18 06:40 Discharge Summary Reason For Visit: SYSTEMIC INFLAMMATORY RESPONSE SYNDROM Current Active Problems Pyelonephritis (Acute) Sepsis (Acute) Hospital Course: 22 y/o lady with h/o asthma who presented with abd pain and R flank pain. At presentation she met SIRS criteria with evidence of infection on her UA. She was started on ceftriaxone for Urosepsis and R pyelonephritis. unfortunately , urine culture was taken after Abx were started and grew no organisms . patient improved with treatment but she continued to have fever and her WBC increased to 13 k , so US was done to show no renal abscess. after that patient improved, and fever resolved, with WBC droping to 10.5. she is to be d/c home on vantin 200 BID x 6 more days to complete a course of 10 days of Abx . her blood culture remainedneg at 72 hours . Microbiology 05/21/18 08:57 Blood - Peripheral Venous Blood Culture - Preliminary NO GROWTH OBTAINED AFTER 72 HOURS, INCUBATION TO CONTINUE FOR 2 DAYS. 05/21/18 08:57 Blood - Peripheral Venous Blood Culture - Preliminary NO GROWTH OBTAINED AFTER 72 HOURS, INCUBATION TO CONTINUE FOR 2 DAYS. 05/21/18 13:45 Urine - Urine Clean Catch Urine Culture - Final NO GROWTH OBTAINED Condition: Improved - Instructions Diet, Activity, Other Instructions: You were treated for a complicated urinary tract infection , that had caused infection in your kidney take Vantin ( antibiotic) 200 mg twice a day for 6 more days. start tomorrow morning at 10 am do not stop antibiotics onyou own before talking to a doctor report or come back to ER if you have fever, pain in abdomen or flank, or blood in urine. Referrals: Abran Mccoy MD [Primary Care Provider] - 1 Week Disposition: HOME - Home Medications Comprehensive Discharge Medication List: Ambulatory Orders Cefpodoxime Proxetil [Vantin -] 200 mg PO Q12H #12 tablet 05/24/18 This patient is new to me today: No Emergency Visit: Yes ED Registration Date: 05/21/18 Care time: The patient presented to the Emergency Department on the above date and was hospitalized for further evaluation of their emergent condition. Critical Care patient: No - Discharge Referral Referred to [facility] Med [facility].: No
[2018-05-24 15:45] VITALS: BP 104/63; PULSE 62; TEMP 98.8
== END 2018-05-24 16:01 | disposition home or self-care (01) | DRG 872 ==
LOC: JER 05:26 → JERBED 08:57 → OBSVTOIN 12:44 → J5S 17:32
PROVIDERS: ADMIT Internal Medicine; ATTEND Internal Medicine
DX: A41.9 Sepsis, unspecified organism (principal); N10 Acute pyelonephritis; D72.829 Elevated white blood cell count, unspecified; J45.20 Mild intermittent asthma, uncomplicated
CPT/HCPCS: 36415; 76775-TC; 76856-TC; 80048; 80053; 81003; 81015; 83605; 83735; 84100; 84703; 85025; 87040; 87086; 99285-25; G0378; J0131; J7030

== ENCOUNTER 2019-04-20 01:12 | Emergency (ER) | payer OTHER ==
[2019-04-20 01:53] VITALS: TEMP 98.2; BMI 17.3
--- NOTE | 2019-04-20 03:13 | PDOC ---
Attending Attestation - Resident Resident Name: JoselineNain trammell - ED Attending Attestation I have performed the following: I have examined & evaluated the patient, The case was reviewed & discussed with the resident, I agree w/resident's findings & plan - HPI HPI: 04/20/19 21:10 see resident hpi - Physicial Exam PE: 04/20/19 21:10 GENERAL: Awake, in no acute distress HEAD: No signs of trauma EYES: ENT: Moist mucosa NECK: Normal ROM, LUNGS:. Normal work of breathing. HEART: Regular rate and rhythm, ABDOMEN: nondistended CHEST WALL: BACK: No midline tenderness. EXTREMITIES:. No erythema, or tenderness NEUROLOGICAL: Alert, - Medical Decision Making 04/20/19 21:11 23-year-old female with left-sided abdominal pain, now resolved Urine evaluation pending Signed out to oncoming physician for final disposition
--- NOTE | 2019-04-20 03:34 | PDOC ---
History of Present Illness - General Chief Complaint: Pain, Acute Stated Complaint: KIDNEY PAIN Time Seen by Provider: 04/20/19 02:48 History Source: Patient, Significant Other - History of Present Illness Initial Comments: 04/20/19 03:25 Ms. Gilbert is a 23 y/o woman with hx prior pyelonephritis one year ago presenting with one day of L sided abdominal pain Past History - Past Medical History Allergies/Adverse Reactions: Allergies Allergy/AdvReac Type Severity Reaction Status Date / Time peanut Allergy Itching Verified 04/20/19 01:53 Home Medications: Ambulatory Orders Cefpodoxime Proxetil [Vantin -] 200 mg PO Q12H #12 tablet 05/24/18 Cephalexin [Keflex] 500 mg PO BID 7 Days #14 capsule 04/20/19 Anemia: No Asthma: Yes Cancer: No Cardiac Disorders: No CVA: No COPD: No CHF: No Dementia: No Diabetes: No GI Disorders: No Disorders: No HTN: No Hypercholesterolemia: No Liver Disease: No Seizures: No Thyroid Disease: No - Immunization History Immunization Up to Date: Yes - Suicide/Smoking/Psychosocial Hx Smoking Status: No Smoking History: Never smoked Have you smoked in the past 12 months: No Number of Cigarettes Smoked Daily: 0 Hx Alcohol Use: Yes (Social) Drug/Substance Use Hx: No Substance Use Type: None Hx Substance Use Treatment: No *Physical Exam - Vital Signs Last Vital Signs Temp Pulse Resp BP Pulse Ox 98.2 F 105 H 15 113/68 100 04/20/19 01:46 04/20/19 01:46 04/20/19 01:46 04/20/19 01:46 04/20/19 01:46 ED Treatment Course - LABORATORY CBC & Chemistry Diagram: 04/20/19 04:40 04/20/19 04:40 *DC/Admit/Observation/Transfer Diagnosis at time of Disposition: Urinary tract infection Qualifiers: Urinary tract infection type: site unspecified Hematuria presence: without hematuria Qualified Code(s): N39.0 - Urinary tract infection, site not specified - Discharge Dispostion Disposition: HOME Condition at time of disposition: Fair Decision to Admit order: No - Prescriptions Prescriptions: Cephalexin [Keflex] 500 mg PO BID 7 Days #14 capsule - Referrals Referrals: Abran Mccoy MD [Primary Care Provider] - - Patient Instructions Printed Discharge Instructions: DI for Urinary Tract Infection (UTI) Additional Instructions: You were evaluated in the emergency department for flank pain. We found that you have a UTI, please take your antibiotic (Keflex) twice daily for one week. Follow up with your primary care doctor in the next week. The sharp pain in your side may have been due to an ovary twisting, and then twisting back into its normal position. Please follow up with your tube laser operator within the next week. - Post Discharge Activity
[2019-04-20 04:52] LABS: BASO % 0.4 % (0-2.0); EOS % 2.3 % (0-4.5); HEMATOCRIT 38.3 % (32.4-45.2); HEMOGLOBIN 12.8 GM/dL (10.7-15.3); LYMPH % 33.1 % (8-40); MCH 30.6 pg (25.7-33.7); MCHC 33.5 g/dl (32.0-36.0); MEAN CELL VOLUME 91.6 fl (80-96); MEAN PLT VOLUME 8.1 fl (7.5-11.1); MONO % 6.9 % (3.8-10.2); NEUT % 57.3 % (42.8-82.8); PLATELET COUNT 271 K/MM3 (134-434); RBC 4.19 M/mm3 (3.60-5.2); RDW 13.8 % (11.6-15.6); WHITE BLOOD COUNT 11.8 K/mm3 (4.0-10.0)
[2019-04-20 05:21] LABS: ALBUMIN 4.3 g/dl (3.4-5.0); ALK PHOS 80 U/L (45-117); ANION GAP 6 MMOL/L (8-16); BILIRUBIN,TOTAL 0.4 mg/dL (0.2-1); BLOOD UREA NITROGEN 20.1 mg/dL (7-18); CALCIUM 9.7 mg/dL (8.5-10.1); CHLORIDE 107 mmol/L (98-107); CO2 24 mmol/L (21-32); CREATININE 0.9 mg/dL (0.55-1.3); GLUCOSE,RANDOM 92 mg/dL (74-106); POTASSIUM 4.4 mmol/L (3.5-5.1); SGOT/AST 12 U/L (15-37); SGPT/ALT 14 U/L (13-61); SODIUM 137 mmol/L (136-145)
[2019-04-20 06:50] LABS: EPI CELLS 6.5 /HPF (0-5/HPF); HYALINE CASTS 1 /lpf (0-8); PH,URINE 5.5 (5.0-8.0); URINE APPEARANCE CLOUDY; URINE BACTERIA 7167.2 /hpf (NEGATIVE); URINE BILIRUBIN NEGATIVE (NEGATIVE); URINE COLOR YELLOW; URINE GLUCOSE (UA) NEGATIVE (NEGATIVE); URINE KETONE NEGATIVE (NEGATIVE); URINE LEUK ESTERASE 1+ (NEGATIVE); URINE NITRITE POSITIVE (NEGATIVE); URINE PROTEIN NEGATIVE (NEGATIVE); URINE RBC 2 /hpf (0-4); URINE UROBILINOGEN 0.2 mg/dL (0.2-1.0); URINE WBC 7 /hpf (0-5)
[2019-04-20 07:28] VITALS: BP 116/73; PULSE 96
== END 2019-04-20 07:26 | disposition home or self-care (01) ==
LOC: JER 01:12
DX: N39.0 Urinary tract infection, site not specified (principal); J45.909 Unspecified asthma, uncomplicated
CPT/HCPCS: 36415; 80053; 81003; 83690; 84702; 85025; 87086; 87186; 99283-25

== ENCOUNTER 2019-07-28 16:11 | Emergency (ER) | payer OTHER ==
[2019-07-28 16:17] VITALS: BP 109/75; PULSE 86; TEMP 98.3; BMI 19.6
--- NOTE | 2019-07-28 16:19 | PDOC ---
Rapid Medical Evaluation Time Seen by Provider: 07/28/19 16:14 Medical Evaluation: Allergies Allergy/AdvReac Type Severity Reaction Status Date / Time peanut Allergy Itching Verified 04/20/19 01:53 07/28/19 16:15 Pt presents for evaluation after injuries from a fall. Pt states she fell down a flight of stairs yesterday and hit her head. Denies LOC. States she woke up this morning and threw up blood and now has abdominal pain. Exam: Tender to the LUQ, LLQ Orders: Labs, IV Pt to proceed to the ER for further evaluation Discharge Disposition - Diagnosis Abdominal pain Qualifiers: Abdominal location: left upper quadrant Qualified Code(s): R10.12 - Left upper quadrant pain - Referrals - Patient Instructions - Post Discharge Activity
--- NOTE | 2019-07-28 16:52 | PDOC ---
History of Present Illness - General Chief Complaint: Injury Stated Complaint: VOMITING BLOOD Time Seen by Provider: 07/28/19 16:14 History Source: Patient Exam Limitations: No Limitations - History of Present Illness Initial Comments: Melonie Gilbert is a 24 yo F w no sig pmh who presents to the [facility] er after she tripped and fell/tumbled down the stairs last night. She hit her head and left hip during the fall and states that she is in a significant amount of pain today. She reports that she wasn't planning on coming to the hospital but she vomited and stats that her vomit was red appearing like blood. She also states she has been nauseous ever since the fall. Lastly, she reports that she is having a difficult time walking with her left hip secondary to pain. - Patient states she is sexually active with her boyfriend and does not use protection. LMP: 2 weeks ago PCP: None PSH: None reported Allergies: NKA, NKDA Social Hx: Denies smoking, drinking, or other substance usage Past History - Past Medical History Allergies/Adverse Reactions: Allergies Allergy/AdvReac Type Severity Reaction Status Date / Time peanut Allergy Itching Verified 07/28/19 16:17 Home Medications: Ambulatory Orders Nitrofurantoin Macrocrystal [Nitrofurantoin] 100 mg PO BID #10 capsule 07/28/19 Anemia: No Asthma: Yes Cancer: No Cardiac Disorders: No CVA: No COPD: No CHF: No Dementia: No Diabetes: No GI Disorders: No Disorders: No HTN: No Hypercholesterolemia: No Liver Disease: No Seizures: No Thyroid Disease: No - Immunization History Immunization Up to Date: Yes - Psycho Social/Smoking Cessation Hx Smoking Status: No Smoking History: Never smoked Have you smoked in the past 12 months: No Number of Cigarettes Smoked Daily: 0 Information on smoking cessation initiated: No Hx Alcohol Use: No Drug/Substance Use Hx: No Substance Use Type: None Hx Substance Use Treatment: No Review of Systems - Review of Systems Able to Perform ROS?: Yes Comments:: CONSTITUTIONAL: Absent: fever, no chills, no fatigue EYES: Absent: visual changes ENT: Absent: ear pain, no sore throat CARDIOVASCULAR: Absent: chest pain, no palpitations RESPIRATORY: Absent: cough, no SOB GI: Present: Abdominal pain, nausea, vomiting Absent: no constipation, no diarrhea GENITOURINARY: Absent: dysuria, no frequency, no hematuria MUSKULOSKELETAL: Present: back pain, arthralgia Absent: no myalgia SKIN: Present: rash NEURO: Present: headache *Physical Exam - Vital Signs Last Vital Signs Temp Pulse Resp BP Pulse Ox 98.3 F 86 19 109/75 100 07/28/19 16:15 07/28/19 16:15 07/28/19 16:15 07/28/19 16:15 07/28/19 16:15 - Physical Exam Comments: GENERAL: Patient is awake, alert and in no acute distress. Speech is clear and appropriate. HEAD: Atraumatic and nontender. HEENT: Pupils are equal round and reactive to light, extraocular movements are intact. The tympanic membranes are clear, no hemotympanum. No facial deformity. No facial bone tenderness or step-off. No nasal septal hematoma. The oropharynx is clear. NECK: The trachea is midline, there is no stridor. There is no midline cervical spine tenderness, full range of motion of neck. CHEST: Non-tender, no ecchymosis or abrasions. Equal chest wall expansion bilaterally. No flail segments. Lungs are clear to auscultation bilaterally. CARDIOVASCULAR: S1-S2, regular rate and rhythm. No murmurs or rubs. ABDOMEN: There is a left flank echymosis. There is a significant amount of pain in the left lower quadrant. Otherwise the abdomen is soft, nontender, nondistended. Bowel sounds are normoactive. BACK/PELVIS: There is no midline thoracic or lumbosacral spine tenderness or step-off. Pelvis is stable and nontender. EXTREMITIES: Left hip bone Tenderness. There is no extremity deformity or joint swelling. 2+ distal pulses throughout. NEURO: Alert and oriented x3. Cranial nerves II through XII are intact. 5 out of 5 motor strength x4 extremities. No gross sensory deficits. [id number] is intact. No pronator drift. Gait is stable. SKIN: No abrasions, hematomas, lacerations. PSYCH: Affect is appropriate Procedures - Bedside Ultrasound Bedside Ultrasound: Focused Assessment w/Sonography for Trauma Remarks: There is no intra-abdominal free fluid - b/l lung sliding - no pneumothorax ED Treatment Course - LABORATORY CBC & Chemistry Diagram: 07/28/19 17:24 07/28/19 17:24 - RADIOLOGY Radiograph Interpretation: CTAP: Abdomen and pelvis CT with intravenous contrast Clinical information: trauma multiplanar imaging was performed following the intravenous administration of nonionic contrast. Enteric contrast was not administered. Evaluation is somewhat limited in that the study was performed during delayed venous imaging as the patient was unable to remain motionless immediately following contrast injection. No evidence of pneumoperitoneum, abscess or bowel obstruction. 2 cm left ovarian cyst. A small amount of free intraperitoneal fluid is seen within the cul-de-sac and bilateral adnexa. The liver, spleen, pancreas, gallbladder, adrenal glands and kidneys demonstrate no discrete pathology. The aorta appears unremarkable in caliber. No obvious CT evidence of acute appendicitis or diverticulitis allowing for partially obscuring contiguous small bowel loops. No gross noncontrast small bowel pathology is identified. There is no discrete mesenteric hematoma. There is possible mild diffuse urinary bladder wall thickening as on a previous CT study of 2015 versus representing artifactual thickening due to limited distention. The visualized osseous structures demonstrate no obvious CT evidence of acute abnormality. The partially imaged lower chest appears unremarkable. Impression: No definite CT findings of acute pathology identified as noted above. 2 cm left ovarian cyst. A small amount of free fluid is noted within the cul-de-sac and adnexa bilaterally. As on a 2016 CT study the urinary bladder demonstrates possible mild diffuse wall thickening - ? possible chronic or recurrent cystitis versus representing artifactual thickening due to underdistention. Correlate clinically Medical Decision Making - Medical Decision Making Melonie Gilbert is a 24 yo F w no sig pmh who presents to the [facility] er after she tripped and fell/tumbled down the stairs last night. She hit her head and left hip during the fall and states that she is in a significant amount of pain today. She reports that she wasn't planning on coming to the hospital but she vomited and stats that her vomit was red appearing like blood. She also states she has been nauseous ever since the fall. Lastly, she reports that she is having a difficult time walking with her left hip secondary to pain. - Patient states she is sexually active with her boyfriend and does not use protection. LMP: 2 weeks ago Vital Signs Temp Pulse Resp BP Pulse Ox 98.3 F 86 19 109/75 100 07/28/19 16:15 07/28/19 16:15 07/28/19 16:15 07/28/19 16:15 07/28/19 16:15 DDx IBNLT: Kidney laceration, pelvic fx, brain bleed Plan: Hcg, labs, Head CT, CTAP HCG: negative Head CT: No acute pathology CTAP: No acute pathology Re-assessment: Patient doing much better in ED and has no current complaints. Disposition: Patient can be DC'ed home if CT's and CXR are negative - Patient being signed out to incoming night team for final ED disposition and treatment Discharge - Discharge Information Problems reviewed: Yes Clinical Impression/Diagnosis: Abdominal pain Qualifiers: Abdominal location: left upper quadrant Qualified Code(s): R10.12 - Left upper quadrant pain Condition: Stable Disposition: HOME - Admission No - Additional Discharge Information Prescriptions: Nitrofurantoin Macrocrystal [Nitrofurantoin] 100 mg PO BID #10 capsule - Follow up/Referral Referrals: Abran Mccoy MD [Primary Care Provider] - Deion Chadwick MD [Staff Physician] - - Patient Discharge Instructions Patient Printed Discharge Instructions: DI for Urinary Tract Infection (UTI), DI for Abdominal Pain-Adult, How to Prevent Falls Additional Instructions: Follow up with the Urologist referred to you for bladder wall thickening and UTI. Please take the antibiotics as prescribed for the next 5 days. Follow up with your Primary Doctor within the next 48 hours. Return to the ER for new or concerning symptoms including but not limited to: worsening abdominal pain, feelings of fainting, inability to eat or drink. Thank you - Post Discharge Activity
--- NOTE | 2019-07-28 16:55 | PDOC ---
Attending Attestation - Resident Resident Name: Brant Dyer - ED Attending Attestation I have performed the following: I have examined & evaluated the patient, The case was reviewed & discussed with the resident, I agree w/resident's findings & plan, Exceptions are as noted - HPI HPI: 07/28/19 16:52 We had some interesting so this post posterior 24-year-old female no past medical history here today status post minor trauma. Patient states she is fell down several stairs yesterday evening states she slipped because she was wearing socks. Denies any alcohol intoxication other drug use at that time denies any history of domestic violence states she was not pushed currently today complaining of left lower flank left lower abdominal pain and left hip pain. States she does not remember whether or not she lost consciousness today she was having persistent nausea was able to induce vomiting at first was noticed vomit with chunks followed by bright red blood. Denies several episodes of repeated retching. Denies eating anything red no history of other abnormal bleeding disorders here today because the pain was persistent and she was concerned about the hematemesis - Physicial Exam PE: 07/28/19 16:53 Awake alert no acute distress head is atraumatic there is no midline cervical spinal tenderness. No paraspinal tenderness. No midline T, L, S, tenderness over the spine. The left lower quadrant and left mid quadrant abdomen is tender to palpation no rebound no guarding there is mild left CVA tenderness small area of ecchymosis is noted. The left hip is pain with range of motion patient does have full range of motion but is painful. The knee and ankle are nontender no noted gross deformities. Pelvis is stable. Cardiac exam is normal regular rate and rhythm no murmurs rubs or gallops lungs are clear bilaterally there is no chest wall crepitus no step-offs no bony deformities and no reproducible tenderness. Neurologically patient has a GCS of 15 moves all 4 extremities is awake alert and oriented. Skin is clear except for the ecchymosis over the left flank as described - Medical Decision Making 07/28/19 16:54 24-year-old female status post trip and fall down the stairs concerns for LOC and emesis today we will obtain a CT head. In addition CT abdomen pelvis to rule out any internal organ injury such as renal injury or splenic injury. Will obtain a UA and UCG patient denies any domestic violence we will add a chest x-ray to rule out any rib fractures focused ED ultrasound was performed at bedside patient has a negative screening FAST exam 07/28/19 19:20 singed out to oncoming attending. awaiting ct results. pending.
[2019-07-28 17:29] LABS: EPI CELLS 13.2 /HPF (0-5/HPF); HYALINE CASTS 2 /lpf (0-8); URINE APPEARANCE CLOUDY; URINE BACTERIA 365.1 /hpf (NEGATIVE); URINE BILIRUBIN NEGATIVE (NEGATIVE); URINE COLOR YELLOW; URINE GLUCOSE (UA) NEGATIVE (NEGATIVE); URINE KETONE TRACE (NEGATIVE); URINE LEUK ESTERASE 2+ (NEGATIVE); URINE NITRITE NEGATIVE (NEGATIVE); URINE PROTEIN NEGATIVE (NEGATIVE); URINE RBC 1 /hpf (0-4); URINE UROBILINOGEN 0.2 mg/dL (0.2-1.0); URINE WBC 9 /hpf (0-5)
[2019-07-28 17:47] LABS: BASO % 0.3 % (0-2.0); EOS % 1.4 % (0-4.5); HEMATOCRIT 41.8 % (32.4-45.2); HEMOGLOBIN 13.9 GM/dL (10.7-15.3); LYMPH % 18.2 % (8-40); MCH 30.3 pg (25.7-33.7); MCHC 33.4 g/dl (32.0-36.0); MEAN CELL VOLUME 90.8 fl (80-96); MEAN PLT VOLUME 8.3 fl (7.5-11.1); MONO % 4.8 % (3.8-10.2); NEUT % 75.3 % (42.8-82.8); PLATELET COUNT 316 K/MM3 (134-434); WHITE BLOOD COUNT 11.7 K/mm3 (4.0-10.0)
[2019-07-28] MEDS ORDERED: ACETAMINOPHEN 325 MG TABLET (FP) PO ONE (18:08)
[2019-07-28] MEDS ORDERED: ONDANSETRON 4 MG/2 ML VIAL IVPUSH ONE (18:08)
[2019-07-28 18:11] LABS: ALBUMIN 4.5 g/dl (3.4-5.0); BILIRUBIN,TOTAL 0.7 mg/dL (0.2-1); BLOOD UREA NITROGEN 12.2 mg/dL (7-18); CREATININE 0.8 mg/dL (0.55-1.3); POTASSIUM 4.3 mmol/L (3.5-5.1); TOT PROT 8.7 g/dl (6.4-8.2)
[2019-07-28] MEDS ORDERED: ONDANSETRON 4 MG/2 ML VIAL ONE (18:16)
[2019-07-28] MEDS ORDERED: ACETAMINOPHEN 325 MG TABLET (FP) ONE (18:16)
--- NOTE | 2019-07-28 20:26 | PDOC ---
*Physical Exam - Vital Signs Last Vital Signs Temp Pulse Resp BP Pulse Ox 98.3 F 86 19 109/75 100 07/28/19 16:15 07/28/19 16:15 07/28/19 16:15 07/28/19 16:15 07/28/19 16:15 ED Treatment Course - LABORATORY CBC & Chemistry Diagram: 07/28/19 17:24 07/28/19 17:24 - ADDITIONAL ORDERS Additional order review: Laboratory Results 07/28/19 07/28/19 07/28/19 17:24 17:24 17:03 Sodium 141 Potassium 4.3 Chloride 106 Carbon Dioxide 25 Anion Gap 10 BUN 12.2 Creatinine 0.8 Est GFR (CKD-EPI)AfAm 121.29 Est GFR (CKD-EPI)NonAf 104.65 Random Glucose 93 Calcium 10.0 Total Bilirubin 0.7 AST 12 L ALT 16 Alkaline Phosphatase 86 Total Protein 8.7 H Albumin 4.5 Serum , Qual Negative Urine Color Urine Appearance Urine pH Ur Specific Mongo Urine Protein Urine Glucose (UA) Urine Ketones Urine Blood Urine Nitrite Urine Bilirubin Urine Urobilinogen Ur Leukocyte Esterase Urine WBC (Auto) Urine RBC (Auto) Urine Casts (Auto) U Epithel Cells (Auto) Urine Bacteria (Auto) Urine HCG, Qual Negative 07/28/19 17:03 Sodium Potassium Chloride Carbon Dioxide Anion Gap BUN Creatinine Est GFR (CKD-EPI)AfAm Est GFR (CKD-EPI)NonAf Random Glucose Calcium Total Bilirubin AST ALT Alkaline Phosphatase Total Protein Albumin Serum , Qual Urine Color Yellow Urine Appearance Cloudy Urine pH 8.0 D Ur Specific Mongo 1.021 Urine Protein Negative Urine Glucose (UA) Negative Urine Ketones Trace H Urine Blood Negative Urine Nitrite Negative Urine Bilirubin Negative Urine Urobilinogen 0.2 Ur Leukocyte Esterase 2+ H Urine WBC (Auto) 9 Urine RBC (Auto) 1 Urine Casts (Auto) 2 U Epithel Cells (Auto) 13.2 Urine Bacteria (Auto) 365.1 Urine HCG, Qual 07/28/19 17:24 RBC 4.60 MCV 90.8 MCHC 33.4 RDW 14.0 MPV 8.3 Neutrophils % 75.3 D Lymphocytes % 18.2 D Monocytes % 4.8 Eosinophils % 1.4 Basophils % 0.3 - Medications Given in the ED: ED Medications Discontinued Medications Generic Name Dose Route Start Last Admin Trade Name Freq PRN Reason Stop Dose Admin Acetaminophen 975 mg 07/28/19 18:08 07/28/19 18:22 Tylenol - PO 07/28/19 18:09 Not Given ONCE ONE Ondansetron HCl 4 mg 07/28/19 18:08 07/28/19 18:22 Zofran Injection IVPUSH 07/28/19 18:09 Not Given ONCE ONE Medical Decision Making - Medical Decision Making 07/28/19 20:21 S/O from day team Pending CT after fall with abdominal pain CT neg for acute findings. Report shows small amount of cul de sac free fluid 2cm L ovarian cyst and chronic cystitis Abdomen non peritoneal, pt ambulates without difficulty. UTI found on UA, will treat with Nitrofurantoin and f/u with Urology for CT findings and recurrent UTIs Pt safe for DC home with strict return precautions and f/u with PCP Discharge - Discharge Information Problems reviewed: Yes Clinical Impression/Diagnosis: Abdominal pain Qualifiers: Abdominal location: left upper quadrant Qualified Code(s): R10.12 - Left upper quadrant pain Condition: Stable Disposition: HOME - Admission No - Additional Discharge Information Prescriptions: Nitrofurantoin Macrocrystal [Nitrofurantoin] 100 mg PO BID #10 capsule - Follow up/Referral Referrals: Abran Mcocy MD [Primary Care Provider] - Deion Chadwick MD [Staff Physician] - - Patient Discharge Instructions Patient Printed Discharge Instructions: DI for Urinary Tract Infection (UTI), DI for Abdominal Pain-Adult, How to Prevent Falls Additional Instructions: Follow up with the Urologist referred to you for bladder wall thickening and UTI. Please take the antibiotics as prescribed for the next 5 days. Follow up with your Primary Doctor within the next 48 hours. Return to the ER for new or concerning symptoms including but not limited to: worsening abdominal pain, feelings of fainting, inability to eat or drink. Thank you - Post Discharge Activity
== END 2019-07-28 21:12 | disposition home or self-care (01) ==
LOC: JER 16:11
DX: R10.12 Left upper quadrant pain (principal); W10.9XXA Fall (on) (from) unspecified stairs and steps, initial encounter; Y93.89 Activity, other specified; Y92.89 Other specified places as the place of occurrence of the external cause; Z91.010 Allergy to peanuts
CPT/HCPCS: 36415; 70450-TC; 71046-TC-FY; 74177-TC; 76604; 76705-TC; 80053; 81003; 84703; 85025; 87077; 87086; 93308; 99282-25

== ENCOUNTER 2021-02-21 18:28 | Emergency (ER) | payer OTHER ==
[2021-02-21 18:38] VITALS: TEMP 98.1; BMI 21.4
[2021-02-21 22:25] LABS: BASO % 0.6 % (0-2.0); EOS % 1.2 % (0-4.5); HEMATOCRIT 39.1 % (32.4-45.2); HEMOGLOBIN 13.3 GM/dL (10.7-15.3); LYMPH % 18.5 % (8-40); MCH 29.8 pg (25.7-33.7); MEAN CELL VOLUME 87.6 fl (80-96); MEAN PLT VOLUME 8.3 fl (7.5-11.1); NEUT % 72.7 % (42.8-82.8); PLATELET COUNT 279 10^3/uL (134-434); RBC 4.46 M/mm3 (3.60-5.2); RDW 14.2 % (11.6-15.6)
[2021-02-21 22:46] LABS: CHLORIDE 105 mmol/L (98-107); SODIUM 138 mmol/L (136-145)
[2021-02-21 22:47] LABS: CALCIUM 9.6 mg/dL (8.5-10.1)
[2021-02-21 22:49] LABS: ALBUMIN 4.2 g/dl (3.4-5.0); ANION GAP 12 MMOL/L (8-16); BLOOD UREA NITROGEN 6.7 mg/dL (7-18); CO2 21 mmol/L (21-32); GLUCOSE,RANDOM 81 mg/dL (74-106)
[2021-02-21 22:52] LABS: CREATININE 0.8 mg/dL (0.55-1.3); SGOT/AST 8 U/L (15-37); SGPT/ALT 10 U/L (13-61)
[2021-02-21 22:54] LABS: BILIRUBIN,TOTAL 0.7 mg/dL (0.2-1)
[2021-02-21 22:55] LABS: ALK PHOS 88 U/L (45-117)
[2021-02-21 22:58] LABS: EPI CELLS >36 /uL (0-25.1); HYALINE CASTS 6 /uL (0-3.1); URINE APPEARANCE TURBID; URINE BACTERIA 1026 /uL (0-1359); URINE BILIRUBIN NEGATIVE (NEGATIVE); URINE COLOR ORANGE; URINE GLUCOSE (UA) NEGATIVE (NEGATIVE); URINE KETONE 2+ (NEGATIVE); URINE LEUK ESTERASE 2+ (NEGATIVE); URINE NITRITE NEGATIVE (NEGATIVE); URINE PROTEIN 1+ (NEGATIVE); URINE RBC 1747 /uL (0-23.9); URINE UROBILINOGEN 0.2 mg/dL (0.2-1.0); URINE WBC 541 /uL (0-25.8)
[2021-02-21 23:04] VITALS: BP 118/75; PULSE 68
== END 2021-02-21 23:10 | disposition home or self-care (01) ==
LOC: JER 18:28
DX: O26.851 Spotting complicating pregnancy, first trimester (principal); O23.41 Unspecified infection of urinary tract in pregnancy, first trimester; Z3A.01 Less than 8 weeks gestation of pregnancy
CPT/HCPCS: 36415; 76817-TC; 80053; 81003; 84702; 85025; 86850; 86900; 86901; 87491; 87591; 99284-25

== ENCOUNTER 2021-05-23 20:22 | Emergency (ER) | payer OTHER ==
[2021-05-23 20:52] VITALS: BP 105/66; PULSE 69; TEMP 100.7; BMI 20.7
== END 2021-05-23 21:40 | disposition home or self-care (01) ==
LOC: JER 20:22
DX: R05 Cough (principal); J34.89 Other specified disorders of nose and nasal sinuses; Z11.52 Encounter for screening for COVID-19
CPT/HCPCS: 99283-25; C9803; U0003; U0005